=== PATIENT | male | born 1950 | race Caucasian/White ===

== ENCOUNTER 2020-10-15 02:43 | Emergency (ER) | payer MEDICARE ==
[~2020-10-15] VITALS: Ht 190.5 cm; Wt 131.5 kg
[2020-10-15 02:45] VITALS: BP 141/78
[2020-10-15] MEDS ORDERED: METFORMIN HCL500 M3 PO (02:52)
[2020-10-15] MEDS ORDERED: JARDIANCE10 MG PO (02:53)
[2020-10-15] MEDS ORDERED: PRAVACHOL 20 MG20 M1 PO (02:53)
[2020-10-15] MEDS ORDERED: LISINOPRIL20 MG PO (02:53)
[2020-10-15] MEDS ORDERED: TRULICITY3 MG/0.5 M SUBQ (02:54)
[2020-10-15] MEDS ORDERED: HUMULIN R500 UNIT/1 SUBQ (02:57)
[2020-10-15 03:46] LABS: ABSOLUTE LYMPHOCYTES 1.4 thou/uL (0.8-5.3); ABSOLUTE MONOCYTES 0.6 thou/uL (0.0-1.2); ABSOLUTE NEUTROPHILS 6.5 thou/uL (1.6-8.1); BASOPHILS 0.4 %; EOSINOPHILS 0.6 %; HEMATOCRIT 46.2 % (42.0-52.0); HEMOGLOBIN 16.3 gm/dL (14.0-18.0); LYMPHOCYTES 16.1 %; MCH 32.5 pg (26.0-34.0); MCHC 35.2 g/dL (28.0-37.0); MCV 92.3 fL (80.0-100.0); MONOCYTES 7.4 %; MPV 7.7 fl. (7.2-11.1); NUCLEATED RBCS 0 /100WBC; PLATELET COUNT* 191 thou/uL (150-400); POLYS 75.5 %; RBC 5.01 mil/uL (4.50-6.00); RDW-CV 13.5 % (10.5-14.5); WBC 8.6 thou/uL (4.0-11.0)
[2020-10-15 03:53] LABS: CALCIUM 8.7 mg/dL (8.5-10.1); CREATININE 0.8 mg/dL (0.6-1.3); POTASSIUM 3.1 mmol/L (3.5-5.1)
[2020-10-15 03:57] LABS: ALBUMIN 3.5 g/dL (3.4-5.0); TOTAL BILIRUBIN 0.6 mg/dL (<0.1-1.0)
[2020-10-15 04:04] LABS: URINE BILIRUBIN NEGATIVE (Negative); URINE BLOOD NEGATIVE (Negative); URINE CLARITY CLEAR; URINE COLOR YELLOW; URINE GLUCOSE-RANDOM NEGATIVE (Negative); URINE KETONES NEGATIVE (Negative); URINE LEUKOCYTES-REFLEX 1+ (Negative); URINE NITRITE-REFLEX NEGATIVE (Negative); URINE PROTEIN NEGATIVE (Negative)
--- NOTE | 2020-10-15 04:04 | NUR ---
D10 INFUSION RESUMED FROM EMS PER DR. STEVENS.
[2020-10-15 05:14] LABS: CASTS None Seen /LPF (None Seen); SQUAMOUS 0-3 Few /LPF (0-3)
[2020-10-15 05:15] LABS: BACTERIA-REFLEX None Seen /HPF (None Seen); CRYSTALS None Seen /LPF (None Seen); URINE RBC None Seen /HPF (0-2); URINE WBC-REFLEX 6-15 Few /HPF (0-5)
--- NOTE | 2020-10-15 05:58 | NUR ---
RISKS AND BENEFITS OF TRANSFER TO [facility] DISCUSSED WITH PT, UNDERSTANDING VERBALIZED. PT GAVE MYSELF AND JOELLE SAXENA VERBAL CONSENT FOR TRANSFER AT THIS TIME.
[2020-10-15 05:59] LABS: APTT 25.9 Seconds (25.0-31.3); PROTIME 10.3 Seconds (9.20-11.50)
[2020-10-15 06:23] VITALS: BP 144/72
--- NOTE | 2020-10-15 13:58 | EKG ---
[place] [address] ELECTROCARDIOGRAM REPORT Name: MADAN RICHARDSON Room: [facility]#: [id number] Admission: 10/15/20 Attend Phys: Discharge: 10/15/20 Date of : 48 Date of Service: 10/15/20 0249 Report #: [id number] THIS REPORT FOR: //name// [facility] ED Test Date: 2020-10-15 Test Time: 02:49:54 Pat Name: MADAN RICHARDSON Department: Room: [facility] Gender: M Car [employer]: JOSEPH : 1950 Requested By: Mar Nice Order Number: [id number] MD: Sam Soriano Measurements Intervals [place] Rate: 94 P: 74 VA: 182 QRS: 2 QRSD: 101 T: 42 QT: 398 QTc: 498 Interpretive Statements Sinus rhythm Atrial premature complex Borderline low voltage, extremity leads Borderline prolonged QT interval Baseline wander in lead(s) V1 No previous ECG available for comparison Electronically Signed On 10-15-2020 13:57:49 CDT by Sam Soriano [email or web address] <ELECTRONICALLY SIGNED> By: Sam Soriano MD, [facility] 10/15/20 1357 0249 0249 Sam Soriano MD, [facility] /EPI
== END 2020-10-15 07:05 | disposition short-term general hospital (02) ==
LOC: M.ERS 02:43 → M.TBA-ER 05:28 → M.ERS 07:05
PROVIDERS: Personal Emergency Response Attendant
DX: E11.649 Type 2 diabetes mellitus with hypoglycemia without coma (principal); Z20.822 Contact with and (suspected) exposure to COVID-19; I62.03 Nontraumatic chronic subdural hemorrhage; I10 Essential (primary) hypertension; E78.00 Pure hypercholesterolemia, unspecified; Z79.899 Other long term (current) drug therapy; Z79.4 Long term (current) use of insulin